=== PATIENT | male | born 1950 | race Caucasian/White ===

== ENCOUNTER 2019-01-29 14:35 | Emergency (ER) | payer SELFPAY ==
[~2019-01-29] VITALS: Ht 165.1 cm; Wt 60.0 kg
[2019-01-29 14:44] VITALS: BP 125/76
[2019-01-29] MEDS ORDERED: SODIUM CHLORIDE FLUSH 10ML SYR IVF ONE (15:00)
[2019-01-29] MEDS ORDERED: ASPIRIN 81 MG TABLET CHEW PO ONE (15:00)
[2019-01-29] MEDS ORDERED: MORPHINE SULFATE 4 MG/ML, 1ML IVPush PRN (15:00)
[2019-01-29] MEDS ORDERED: ONDANSETRON 2MG/ML, 2ML IVPush ONE (15:00)
--- NOTE | 2019-01-29 15:14 | NUR ---
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
[2019-01-29 15:37] LABS: BASOPHILS # (AUTO) 0.01 x10^3/uL (0-0.1); BASOPHILS % (AUTO) 0 % (0-1); EOSINOPHILS # (AUTO) 0.01 x10^3/uL (0-0.4); EOSINOPHILS % (AUTO) 0 % (1-7); LYMPHOCYTES # (AUTO) 0.68 x10^3/uL (1-3.4); LYMPHOCYTES % (AUTO) 11 % (22-44); MD NO; MEAN CORPUSCULAR HEMOGLOBIN 34.5 pg (27.5-34.5); MEAN CORPUSCULAR HGB CONC 32.9 g/dL (33.2-36.2); MEAN CORPUSCULAR VOLUME 104.9 fL (81-97); MEAN PLATELET VOLUME 8.2 fL (7.4-10.4); MONOCYTES # (AUTO) 0.48 x10^3/uL (0.2-0.8); MONOCYTES % (AUTO) 8 % (2-9); NEUTROPHILS # (AUTO) 5.18 x10^3/uL (1.8-6.8); NEUTROPHILS % (AUTO) 82 % (42-75); PLATELET COUNT 186 x10^3/uL (130-400); RED BLOOD COUNT 4.55 x10^6/uL (4.38-5.82); RED CELL DISTRIBUTION WIDTH 15.8 % (9.4-14.8)
[2019-01-29] MEDS ORDERED: HYDR-3059 PO (15:38)
[2019-01-29] MEDS ORDERED: HYDR-3059 PEG (15:38)
[2019-01-29] MEDS ORDERED: FAMO20TA7 PO (15:38)
[2019-01-29] MEDS ORDERED: MORP30TA3 PO (15:38)
[2019-01-29 15:47] LABS: ALBUMIN 3.4 g/dL (3.4-5.0); ANION GAP 6 mmol/L (5-15); CALCIUM 8.8 mg/dL (8.5-10.1); CHLORIDE 112 mmol/L (98-107)
--- NOTE | 2019-01-29 15:51 | NUR ---
PT PRESENT TO ED WITH AND SMALL DOG FOR UPPER STERNUM CHEST PAIN RELIEVED WITH IBUPROFEN AND "A COUPLE HITS OFF THE PUFFER" AND RIGHT KNEE PAIN AFTER MGLF YESTERDAY. PT UNWILLING TO STATE HOW LONG CP HAS BEEN OCCURING. PT CONNECTED TO MONITORS. VSS. PT'S TOOK DOG OUTSIDE AFTER DOG BECAME AGGRESSIVE AND BEGAN GROWLING AND BARKING. PT RESTING IN ROOM. WITH NO NEEDS EXPRESSED. EDMD ASSESSMENT COMPLETE. ORDERS RECEIVED.
[2019-01-29 15:52] LABS: CREATININE 0.73 mg/dL (0.7-1.3); TROPONIN I < 0.015 ng/mL (0.000-0.045)
[2019-01-29] MEDS ORDERED: ASPIRIN 81 MG TABLET CHEW ONE (16:00)
[2019-01-29] MEDS ORDERED: ONDANSETRON 2MG/ML, 2ML ONE (16:00)
[2019-01-29] MEDS ORDERED: ONDANSETRON ODT 4 MG ONE (16:03)
--- NOTE | 2019-01-29 16:13 | NUR ---
PT EDUCATED MULTIPLE TIMES ON RISKS OF EXERTION WITH CHEST PAIN. PT CONTINUED TO STAND AND WALK AROUND IN ROOM. THIS RN ENTERED ROOM AND PT WAS COMPLETELY DRESSED AND NOT IN GOWN. PT ASKED TO PUT GOWN BACK ON. PT BECAME UPSET AND STATED HE WAS TOO COLD AND NO ONE SEEMED TO CARE. THIS RN BROUGHT IN A WARM BLANKET AND AGAIN ASKED PT TO PUT GOWN ON. PT THEN STATED HE WAS LEAVING. RN BROUGHT IN AMA PAPERWORK AND PT LEFT WITHOUT ISSUES.
== END 2019-01-29 16:21 | disposition left against medical advice (07) ==
LOC: ED 16:15
DX: R07.2 Precordial pain (principal); M25.561 Pain in right knee; G89.29 Other chronic pain; F17.200 Nicotine dependence, unspecified, uncomplicated; Z76.0 Encounter for issue of repeat prescription; Z85.46 Personal history of malignant neoplasm of prostate
CPT/HCPCS: 36415; 71045; 80048; 82040; 84484; 85025; 93005; 99284

== ENCOUNTER 2019-03-04 20:38 | Emergency (ER) | payer MEDICARE, OTHER ==
[~2019-03-04] VITALS: Ht 165.1 cm; Wt 56.7 kg
[2019-03-04 22:42] VITALS: BP 131/74
== END 2019-03-04 22:43 | disposition home or self-care (01) ==
LOC: ED 21:39
DX: R10.2 Pelvic and perineal pain (principal); C61 Malignant neoplasm of prostate; M19.90 Unspecified osteoarthritis, unspecified site; F17.200 Nicotine dependence, unspecified, uncomplicated
CPT/HCPCS: 36415; 72110; 72170; 80053; 85025; 99284